=== PATIENT | male | born 1960 | race Caucasian/White ===

== ENCOUNTER → 2017-10-16 | Outpatient (CLI) | payer BC ==
[~2017-10-16] MED LIST: CLC100 PO; NICO21DI12 TD; OPTIRAY 320 IV PRN
--- NOTE | 2017-10-16 16:31 | DIAGNOSTIC IMAGING REPORT ---
ABDOMEN AND PELVIS CT WITH AND WITHOUT INTRAVENOUS CONTRAST, RENAL PROTOCOL HISTORY: MALIGNANT NEOPLASM KIDNEY TECHNIQUE: Multiaxial CT images of the abdomen and pelvis were performed both before and after the intravenous administration of contrast to evaluate the kidneys. COMPARISON STUDY: Abdomen and pelvis CT 05/10/2016. FINDINGS: Patchy and linear densities within the right middle lobe. Otherwise, the lung bases are clear. The patient is status post left nephrectomy. No masses identified within the resection bed. No significant retroperitoneal lymphadenopathy. The visualized adrenal glands are unremarkable. Stable 5 mm hypodense lesion within the lower pole of the right kidney. This favors a cyst. No right-sided hydronephrosis. No right renal calculi. No hepatic or splenic masses. The pancreas and gallbladder are unremarkable. The visualized loops of bowel show no wall thickening or obstruction. Normal bladder. Status post right hip pinning for an old, healed femoral neck fracture. 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 No evidence for femoral head collapse. This remains unchanged. No suspicious lytic or blastic osseous lesions. Normal appendix. IMPRESSION: 1. Status is left nephrectomy. No evidence for metastatic disease within the abdomen or pelvis. 2. Patchy and linear densities within the right middle lobe. This may represent atelectasis or a small developing pneumonia. Electronically signed by: Fredi Klein M.D. 10/16/2017 4:29 PM Dictated Date/Time: 10/16/2017 4:18 PM
== END | disposition home or self-care (01) ==
LOC: C.CTS 15:12
PROVIDERS: ATTEND Urology
DX: C64.9 Malignant neoplasm of unspecified kidney, except renal pelvis (principal); Z90.5 Acquired absence of kidney; R91.8 Other nonspecific abnormal finding of lung field

== ENCOUNTER → 2018-03-12 | Outpatient (CLI) | payer BC ==
--- NOTE | 2018-03-12 12:35 | DIAGNOSTIC IMAGING REPORT ---
CT SCAN OF THE ABDOMEN AND PELVIS COMBO RENAL MASS PROTOCOL CLINICAL HISTORY: Renal cell carcinoma status post left nephrectomy. COMPARISON STUDY: Abdominal CT dated 10/16/2017. TECHNIQUE: Before and following the IV administration of 75 cc of Optiray 320, CT scan of the abdomen and pelvis is performed from the lung bases to the proximal femora using the renal mass protocol. Images are reviewed in the axial, sagittal, and coronal planes. IV contrast was administered without complication. A dose lowering technique was utilized adhering to the principles of ALARA. CT DOSE: 678.91 mGy.cm FINDINGS: Lung bases: The heart is normal in size and without pericardial effusion. Emphysematous change is suggested. The lung bases are otherwise clear. Liver: The contrast-enhanced liver is normal in size, contour, and attenuation. There is no intrahepatic biliary ductal dilatation. The hepatic veins and portal veins are patent. Gallbladder: Unremarkable. Spleen: Normal in size and attenuation. Pancreas: Unremarkable. Adrenal glands: Unremarkable. Kidneys: The left kidney is surgically absent. There is no evidence of recurrent or residual soft tissue lesion in the left renal fossa. The contrast enhanced right kidney is normal in size and without hydronephrosis. No renal calculi are identified in the right kidney on the unenhanced series. The right kidney enhances symmetrically. There is no enhancing mass lesion identified in the right kidney. A subcentimeter cortical hypodensity in the lower pole likely resents a cyst but is too small for definitive characterization. This has not significant changed from previous. There is no evidence of urothelial lesion within the right renal pelvis or along the course of the right ureter. Abdominal vasculature: The abdominal aorta is normal in course and caliber noting moderate to advanced atherosclerotic calcification. Bowel: The small bowel and colon are normal in course and caliber. The appendix is well-visualized and normal. Peritoneum: There is a small volume of free fluid in the pelvis. No intraperitoneal free air is seen. Lymphadenopathy: None. Pelvic viscera: The prostate gland is mildly enlarged and heterogeneous. The bladder wall appears thickened and trabeculated suggesting chronic outlet obstruction Skeletal structures: The skeletal structures are osteopenic. There is mild lumbosacral spondylosis. No lytic or blastic lesions are seen. Chronic posttraumatic deformity and postoperative change is noted in the right hip. There is evidence of avascular necrosis of the right femoral head. IMPRESSION: 1. There is no evidence of recurrent or metastatic disease in the abdomen or pelvis. 2. The left kidney is surgically absent. 3. No enhancing cortical mass is seen involving the right kidney. 4. Additional findings as above. Electronically signed by: Tyler Lr M.D. 03/12/2018 12:34 PM Dictated Date/Time: 03/12/2018 12:16 PM
== END | disposition home or self-care (01) ==
LOC: C.CTS 11:52
PROVIDERS: ATTEND Urology
DX: C64.9 Malignant neoplasm of unspecified kidney, except renal pelvis (principal); R10.9 Unspecified abdominal pain; Z90.5 Acquired absence of kidney